=== PATIENT | male | born 1965 | race Caucasian/White ===

== ENCOUNTER 2023-11-09 17:23 | Inpatient (IN) ==
--- NOTE | 2023-11-09 17:48 | Emergency Department Note ---
Impression & Plan Syncope, CLAUDETTE (acute kidney injury), Hypomagnesemia, Acute hyponatremia, Abnormal ECG, Elevated troponin ED Provider Note NAME: VERONICA VELIZ AGE: 58 SEX: M : 1965 ARRIVES VIA: Ambulance INFORMANT: [Patient][ems, ] ED PROVIDER(S): [Nino Teixeira MD] CHIEF COMPLAINT: Cardiac assessment HISTORY OF PRESENT ILLNESS: The patient is a 58-year-old male who was told that he had coronary calcifications on CT. He has never had a heart attack or any type of cardiac catheterization. He was placed on Lipitor because of the CT findings. The patient states that he is here in the [place] area to run the [employer] He ran the race today and was quite tired after but did not have any chest pain during the race. When he got home, he began to have some muscle cramping and felt nauseated. He felt faint. He had some diarrhea. The patient sat back on his bed and had a 10-second syncopal spell, he was sweaty, his called the ambulance. On the way here, his ECG was suggesting a potential WA although he had no chest pain. He was ordered for IV saline. The patient arrives in the ED without complaints of chest pain. He is not short of breath. He still feels some muscle cramping but not as bad as earlier. Patient states that he has an abnormal ECG. His doctors talk about flipped waves on the outside of the ECG, he cannot really say much further. He has no copy of his baseline ECG with him. He is not from this area so we have no old ECGs to use for comparison. PMHx/PSHx/Social Hx: See Below PHYSICAL EXAM: GENERAL: Patient is in no acute distress. HEENT: No acute trauma, normocephalic atraumatic, mucous membranes moist, no nasal congestion. NECK: No stridor, no adenopathy, no meningismus, trachea is midline. LUNGS: Clear to auscultation bilaterally, no wheeze, no rhonchi, breath sounds equal. HEART: Without murmurs gallops or rubs, regular rate and rhythm. ABDOMEN: Soft, nontender, no peritonitis. EXTREMITIES: No cyanosis, full range of motion of all the joints without pain or difficulty. NEUROLOGIC: Oriented x 3, no acute motor or sensory deficits, no focal weakness. SKIN: No jaundice, no diaphoresis. DIFFERENTIAL DIAGNOSIS: Dehydration, electrolyte abnormality, rhabdomyolysis, WA, dysrhythmia, among others. EMERGENCY DEPARTMENT PROCEDURES: MEDICAL DECISION MAKING: There is a moderate leukocytosis, likely from the stress of running the [employer] race. No worrisome anemia. There was a normal platelet count. Sodium was low, magnesium was low. There was evidence for some mild acute kidney injury/dehydration with a creatinine of 1.95. A slight anion gap was seen at 15. No concerning liver enzyme elevation. Total CK was elevated consistent with muscle breakdown from the race. The value was just over 1000. Troponin was slightly elevated, likely from the race itself but, certainly, cardiac injury is a possibility. ECG showed a normal sinus rhythm with some subtle ST elevation across the anterior leads and some inverted T waves inferiorly and laterally. Looking at the patient's phone records, this ECG abnormality is likely chronic. Chest x-ray did not show CHF or pneumonia. Some mild cardiomegaly was seen. The patient appeared to be in a euthyroid state. On exam, the patient was resting comfortably on the stretcher, there was no complaint of chest pain or shortness of breath. The patient had received a liter of fluid prior to arrival. An additional 1 L of fluid was ordered here in the ED. He was ordered for IV Zofran and IV magnesium. I did call and speak with cardiology, they did not feel the patient required emergent cardiac intervention. His values can be trended. Without chest pain, there is no indication for a heart alert. I did speak with the patient about his findings, he understands the need for a hospital stay. He requires further hydration, some electrolyte replacement and cardiac enzyme trending. The the patient is feeling improved since treatment here in the ED. I did speak with case management, the on-call hospitalist was consulted. Prior/Outside records/notes reviewed: Today's EMS notes describing his presentation and transport to this hospital. ECG per my interpretation: Indication was syncope. The ECG shows a normal sinus rhythm with a rate of 65. There are some subtle ST elevations across the anterior leads. There are inverted T waves across the inferior and lateral leads. No old ECGs available for comparison. No PVCs. The QTc is 428. Continuous Cardiac Monitoring per my interpretation: An order was placed for continuous cardiac monitoring. The monitor shows a rate of 63 with normal sinus rhythm. Imaging/x-ray results per my interpretation: Chest x-ray does not show mediastinal widening, pneumonia or pneumothorax. Some mild cardiomegaly was seen. Chronic Medical/Social conditions affecting care: History of coronary calcifications. Care/Management discussed with: Case management, the on-call hospitalist. Interventional cardiology-Dr. Duenas. Level of care consideration(s): After review of the information above and other included data: --I believe the patient requires escalation of care to admission Critical Care Note: I have personally spent 44 minutes of critical care time in the direct management of this patient. This includes bedside care, interpretation of diagnostic studies, and testing, discussion with consultants, patient, and family members, and other required patient management activities. This 44 minutes is in excess of all separately billable procedures. DISPOSITION: Admission Past Med/Surg History Problem List (Updated 11/09/23 @ 18:42 by Nino Teixeira MD) Elevated troponin (Acute) Abnormal ECG (Acute) Acute hyponatremia (Acute) Hypomagnesemia (Acute) CLAUDETTE (acute kidney injury) (Acute) Syncope (Acute) Medical History Coronary artery calcinosis Social History Smoking Status: Never smoker Preferred Language: Setswana Feels Safe at Home: Yes Results & Data (ED) Vital Signs Vital Signs - 24 hr 11/09/23 17:32 11/09/23 17:36 11/09/23 18:25 Temperature 35.9 C L Temperature Source Temporal Artery Scan Pulse Rate 64 63 Pulse Rate [Right Finger] 69 Respiratory Rate 19 19 Respiratory Effort / Characteristics Non-Labored Spontaneous Respiratory Depth Normal Blood Pressure 148/65 H Blood Pressure [Right Arm] 138/88 Blood Pressure Mean 92 Blood Pressure Mean [Right Arm] 104 Pulse Oximetry 97 100 Oxygen Delivery Method Room Air Room Air Sepsis Recent Fever Within 48 Hours No Sepsis New/Unexplained Change in Mental Status N/A Sepsis Action Taken by Nursing No Action Required Home Medications Current Medication List: was personally reviewed by me Laboratory Data Attestation: I reviewed the patient's lab results. 11/09/23 17:33 11/09/23 17:33 Lab Results 06/30/24 Range/Units 17:33 WBC 16.02 H (4.8-10.8) K/ul RBC 4.58 L (4.70-6.10) M/uL Hgb 13.9 L (14.0-18.0) g/dl Hct 39.9 L (42.0-52.0) % MCV 87.1 (80.0-100.0) fL MCH 30.3 (25.0-34.0) pg MCHC 34.8 (32.0-36.0) g/dL RDW Std Deviation 39.8 (36.4-46.3) fL RDW Coeff of Arlen 12.5 (11.5-14.5) % Plt Count 244 (130-400) K/uL MPV 10.2 (9.4-12.4) fL Immature Gran % (Auto) 0.5 % Neut % (Auto) 82.2 % Lymph % (Auto) 11.9 % [place] % (Auto) 5.2 % Eos % (Auto) 0.0 % Baso % (Auto) 0.2 % Neut # (Auto) 13.16 H (1.40-6.50) K/uL Lymph # (Auto) 1.90 (1.20-3.40) K/uL [place] # (Auto) 0.84 H (0.11-0.59) K/uL Eos # (Auto) 0.00 (0.00-0.50) K/uL Baso # (Auto) 0.04 (0.00-0.20) K/uL Immature Gran # (Auto) 0.08 (0.01-0.20) K/uL Sodium 127 L (136-145) mmol/L Potassium 3.8 (3.5-5.1) mmol/L Chloride 90 L (98-107) mmol/L Carbon Dioxide 22 (21-32) mmol/L Anion Gap 15 H (3-11) BUN 33 H (6-23) mg/dl Creatinine 1.95 H (0.6-1.4) mg/dl Est Cr Clr Drug Dosing 46.1 ml/min Est GFR ( Amer) 42.4 ml/min Est GFR (Non-Af Amer) 36.6 ml/min BUN/Creatinine Ratio 16.9 (10-20) Glucose 134 H (70-99(Fasting)) mg/dl Calcium 10.7 H (8.6-10.3) mg/dl Magnesium 1.5 L (1.7-2.4) mg/dl Total Bilirubin 0.9 (0.2-1.0) mg/dl AST 53 H (13-39) U/L ALT 43 (7-52) U/L Alkaline Phosphatase 71 (34-104) U/L Total Creatine Kinase 1008 H (30-223) U/L Troponin I High Sens 173.4 H* (0-20) pg/ml Total Protein 7.3 (6.0-8.3) gm/dl Albumin 4.9 (3.4-5.0) gm/dl Globulin 2.4 L (2.5-4.0) gm/dl Albumin/Globulin Ratio 2.0 (0.9-2) TSH 2.662 (0.300-4.500) uIu/ml Administered Medications Sodium Chloride (Nss) 1,000 mls @ 999 mls/hr IV .Q1H1M SHIN Stop: 11/09/23 18:45 Last Infusion: 11/09/23 18:27 Dose: Infused Documented By: Admin: 11/09/23 17:51 Dose: 999 mls/hr Documented By: BRENDA Magnesium Sulfate/Dextrose (Magnesium Sulfate / D5w) 1 gm in 100 mls @ 100 mls/hr IV Q1H SHIN Stop: 11/09/23 20:17 Last Admin: 11/09/23 18:25 Dose: 100 mls/hr Documented By: ASW Discontinued Medications Ondansetron HCl (Ondansetron Inj 2 Mg/Ml 2 Ml Vial) 4 mg IV NOW STA Stop: 11/09/23 17:43 Last Admin: 11/09/23 17:49 Dose: 4 mg Documented By: ASW Imaging Data Radiologist's Impression: Chest X-Ray 11/09/23 17:43 XR chest 1V portable CLINICAL HISTORY: weakness COMPARISON STUDY: No previous studies for comparison. FINDINGS: Lung volumes are normal. Lungs are clear. There is no pneumothorax or pleural effusion. There is mild enlargement of the cardiac silhouette. Mediastinal contours are normal. There is no evidence for pulmonary edema. IMPRESSION: No acute cardiopulmonary findings. Mild enlargement of the cardiac silhouette. ACT 112: Negative or not required by law. Electronically signed by: Jose Luis Doss M.D. 11/09/2023 6:22 PM Discharge Plan Visit Data Chief Complaint: Cardiac Assessment ED Provider: Nino Teixeira Discharge Problem: Syncope, CLAUDETTE (acute kidney injury), Hypomagnesemia, Acute hyponatremia, Abnormal ECG, Elevated troponin Patient Disposition: Admitted As Inpatient Condition: Fair Forms Stand Alone Forms: [facility] Referrals Referrals: PCP,NO [Primary Care Provider] - Discharge Problem: Syncope Qualifiers: Syncope type: unspecified Qualified Code(s): R55 - Syncope and collapse
[2023-11-09] MEDS: ONDANSETRON INJ 2 MG/ML 2 ML VIAL IV STA (17:49)
[2023-11-09] MEDS: SODIUM CHLORIDE 0.9% 1,000 ML IV SCH (17:51)
[2023-11-09 18:03] LABS: Basophils # (auto) 0.04 K/uL (0.00-0.20); Basophils % (auto) 0.2 %; Hematocrit (blood only) 39.9 % (42.0-52.0); Hemoglobin 13.9 g/dl (14.0-18.0); Immature Granulocytes # (auto) 0.08 K/uL (0.01-0.20); Immature Granulocytes % (auto) 0.5 %; Lymphocytes % (auto) 11.9 %; Mean Corpuscular Hemoglobin 30.3 pg (25.0-34.0); Mean Corpuscular Hgb Conc 34.8 g/dL (32.0-36.0); Mean Corpuscular Volume 87.1 fL (80.0-100.0); Mean Platelet Volume 10.2 fL (9.4-12.4); Monocytes # (auto) 0.84 K/uL (0.11-0.59); Monocytes % (auto) 5.2 %; Neutrophils # (auto) 13.16 K/uL (1.40-6.50); Neutrophils % (auto) 82.2 %; Platelet Count 244 K/uL (130-400); RDW Coefficient of Variation 12.5 % (11.5-14.5); RDW Standard Deviation 39.8 fL (36.4-46.3); Red Blood Count 4.58 M/uL (4.70-6.10); White Blood Count 16.02 K/ul (4.8-10.8)
[2023-11-09 18:11] LABS: Albumin Level 4.9 gm/dl (3.4-5.0); BUN Creatinine Ratio 16.9 (10-20); Bilirubin,Total 0.9 mg/dl (0.2-1.0); Calcium 10.7 mg/dl (8.6-10.3); Creatinine Clr Calc Pharmacy 46.1 ml/min; Est GFR (African American) 42.4 ml/min; Est GFR (Non-African American) 36.6 ml/min; Globulin 2.4 gm/dl (2.5-4.0); Magnesium 1.5 mg/dl (1.7-2.4); Potassium 3.8 mmol/L (3.5-5.1); Total Protein 7.3 gm/dl (6.0-8.3)
[2023-11-09 18:21] LABS: Troponin I High Sensitivity 173.4 pg/ml (0-20)
--- NOTE | 2023-11-09 18:23 | XRay Report ---
XR chest 1V portable CLINICAL HISTORY: weakness COMPARISON STUDY: No previous studies for comparison. FINDINGS: Lung volumes are normal. Lungs are clear. There is no pneumothorax or pleural effusion. The re is mild enlargement of the cardiac silhouette. Mediastinal contours are normal. There is no eviden ce for pulmonary edema. IMPRESSION: No acute cardiopulmonary findings. Mild enlargement of the cardiac silhouette. ACT 112: Negative or not required by law. Electronically signed by: Jose Luis Doss M.D. 11/09/2023 6:22 PM
[2023-11-09 18:25] LABS: Thyroid Stimulating Hormone 2.662 uIu/ml (0.300-4.500)
[2023-11-09] MEDS: MAGNESIUM SULFATE / D5W 1 GM/100 ML BAG IV SCH (18:25)
[2023-11-09 18:39] LABS: INR 1.1 (0.9-1.1); Partial Thromboplastin Ratio 0.9; Partial Thromboplastin Time 24 Seconds (21-31); Prothrombin Time 11.7 Seconds (9.0-12.0)
--- NOTE | 2023-11-09 18:50 | History & Physical Report ---
Date of Service November 09, 2023 Assessment & Plan (1) Syncope: Plan: Admit to the PCU on telemetry Currently stable, asymptomatic, and nontoxic-appearing at the time of admission Presented to the ED via EMS due to syncopal episode at home after completing [employer] competition earlier today Initial concern for possible STEMI with ST segment elevations in the septal leads, patient has been chest pain-free throughout the day Patient's syncopal episode was likely due to acute dehydration and hypotension shortly after having an episode of diarrhea at home No acute focal findings on neuro exam No reported seizure-like activity per patient's who witnessed the syncopal episode Continue IV hydration Fall precautions have been ordered Echo has been ordered to be obtained tomorrow Bilateral SCDs for DVT prophylaxis Heart healthy diet A.m. CBC along with every 4 hours CMP, mag, Phos, PT/INR overnight (2) Abnormal ECG: Plan: EMS called the ED and route due to concerns for possible STEMI on EKG due to ST segment elevations in the septal leads Patient has confirmed multiple times that he has been chest discomfort free even during the [employer] competition today Was given 324 mg aspirin by EMS and route Case was discussed between the ED and interventional cardiology regarding EKG findings, interventional cardiology did not believe that this was ACS as the domi miller has been chest discomfort free and had no events during the [employer] competition Patient confirmed he had a negative stress echo in July of this year, confirmed he is chronic abnormal EKG Interventional cardiology recommended IV hydration, ongoing telemetry monitoring, ongoing trending of his high-sensitivity troponin, and TTE tomorrow Initial high-sensitivity troponin elevated at 173, will obtain 2-hour repeat after admission and continue every 6 hours overnight Cardiology has been consulted, TTE ordered (3) Elevated troponin: Plan: See abnormal ECG (4) Acute hyponatremia: Plan: Initial sodium of 127, chloride of 90 Patient appears significantly dehydrated on exam after just completing the [employer] competition Will obtain serum osmolality, urine osmolality, urine sodium for further evaluation Status post 1 L normal saline in the ED, we will continue with maintenance LR at 125 mL/h with 20 M EQ's KCl 1 bag for now Will monitor every 4 hours CMP, mag, Phos, PT/INR moving forward Monitor intake/output every 6 hours (5) Hypomagnesemia: Plan: Noted to be 1.5 today Likely due to recent competition and episode of diarrhea prior to arrival Status post 1 g IV mag sulfate in the ED, will give an additional 1 g IV mag sulfate on admission Monitor every 4 hours labs overnight and replete as needed Continue monitor on telemetry (6) Dehydration: Plan: Continue IV hydration overnight Creatinine today is 1.95, unsure of previous baseline Monitor every 4 hours renal function and electrolytes Monitor intake/output every 6 hours Plan The patient was discussed with Dr. Luna at the time of the admission History of Present Illness Chief Complaint: Dizziness, diarrhea, syncopal episode Primary Care Provider: ROMAN PCP Truman is a 58-year-old male with a past medical history significant for nonobstructive coronary artery disease who presented to the [facility] ED via EMS on 11/09/2023 with multiple complaints after completing the local [employer] competition earlier today. The patient reportedly arrived home after completing the [employer] and then started to feel lightheaded/dizzy and had a syncopal episode. While in route EMS obtained an EKG which was concerning for ST segment elevation in the septal leads and did call the ED asking if they should make the patient a heart alert. Of note, the ED staff reports that the patient has been chest pain-free throughout. The ED staff spoke with the on-call cribber regarding the EKG findings. Interventional cardiology did not think that this was a true STEMI as the patient was chest pain-free and had just completed an [employer] competition without any issues during the event itself. Interventional cardiology recommended admission, ongoing cardiac monitoring with further troponin trending, IV hydration, and obtaining echocardiogram tomorrow. On arrival to the ED the patient was initially noted to be hypertensive at 148/65 but with otherwise stable. Labs were significant for a leukocytosis of 16 with neutrophil predominance of 13, creatinine of 1.95 (unknown previous baseline), BUN of 33, anion gap of 15 with bicarb within normal limits, sodium of 127, chloride of 90, mag of 1.5, calcium of 10.7, AST of 53, with other LFTs within normal limits, total CK of 1008, initial high-sensitivity troponin of 173. Chest x-ray was read as negative for acute findings, it did note mild enlargement of the cardiac silhouette. Prior to admission the patient was ordered 1 L normal saline bolus, 2 bags 1 g IV mag sulfate, and 4 mg IV Zofran. Of note, the ED provider explained that he spoke with the patient who again confirmed he has been without chest pain. The patient reported to the ED provider that he has known coronary artery calcifications and an abnormal EKG at baseline. Patient was sitting in bed in no acute distress at the time of exam with his bedside, history was obtained from both. He states that this was the first I am in compensation he has done since his left knee replacement last year. He woke in his normal state of health and felt fine during the swimming portion of the event. During the biking portion of the event he was having issues with recurrent leg cramps. He states that the running portion of the race was difficult due to recurrent cramping but confirms that he had no chest discomfort during the entire competition. When he arrived home he was trying to drink lots of water in order to get hydrated but then got nauseous. He went to the bathroom and had an episode of diarrhea and then went to lay on their bed. After lying flat on their bed he had the 5 to 10-second episode of passing out and quickly regained consciousness. His did see the event and confirms there was no seizure-like activity or loss of bowel or bladder function. Patient confirms he has continued to be chest discomfort free since waking this morning. He feels generally fatigued from this competition with mild leg cramps but is otherwise without complaints at this time. He confirms to me that he has a known history of coronary artery disease and is on a statin. States that he had a normal stress test in July of this year. He denies recent fever, shortness of breath, cough, abdominal pain, dysuria/hematuria, melena/bloody bowel movements, and recent trauma. He is a full code and he would want his to make medical decisions for him if he cannot make them himself I was able to confirm that EMS did give the patient 324 mg aspirin and route. Please refer to Dr. Luna's attestation for any changes to the treatment plan Allergies Allergy/AdvReac Type Severity Reaction Status Date / Time oxycodone [From Percocet] AdvReac Intermediate PASSED Verified 11/09/23 18:43 OUT, NAUSEA/VOMITING Home Medications Medication Instructions Recorded Confirmed Type aspirin 81 mg tablet,delayed 81 mg PO HS 11/09/23 11/09/23 History release magnesium oxide 0 mg PO HS 11/09/23 11/09/23 History multivitamin 1 tab PO QAM 11/09/23 11/09/23 History omega-3 fatty acids 1,000 mg 1,000 mg PO QAM 11/09/23 11/09/23 History capsule rosuvastatin 40 mg tablet 40 mg PO HS 11/09/23 11/09/23 History Past Med/Surg History Problem List (Updated 11/09/23 @ 19:20 by Tre Mcginnis PA-C) Dehydration Elevated troponin (Acute) Abnormal ECG (Acute) Acute hyponatremia (Acute) Hypomagnesemia (Acute) CLAUDETTE (acute kidney injury) (Acute) Syncope (Acute) Medical History Coronary artery calcinosis Social History Smoking Status: Unknown if ever smoked Hx Alcohol Use: Yes Alcohol type: beer Hx Substance Use: No Preferred Language: Czech Communication Ability: Effective Sign Fabricator Required: No Beliefs That Will Affect Care: None Current Living Situation: Spouse Feels Safe at Home: Yes Assistive Devices: Contacts Physical Exam Physical Exam: Physical Exam: General: In no acute distress, stated age, well-nourished, non-toxic appearing HEENT: Normocephalic, atraumatic, no scleral icterus, pupils around round, symmetrical, and reactive to light, dry mucus membranes, trachea midline, no thyromegaly Chest/Pulm: No respiratory distress, symmetrical chest expansion, clear breath sounds throughout Cardiac: RRR, no murmurs noted Abdomen: Negative for ascites and bruising, normoactive bowel sounds, soft, non-tender to palpation throughout Musculoskeletal: Symmetrical and without signs of acute trauma, upper and lower extremities with full ROM, no atrophy, spasticity, or flaccidity Extremities: Radial, dorsalis pedis, and posterior tibial pulses are intact and symmetrical, no edema noted in the BL LE's Skin: Warm, dry, no rashes , lesions, or scars noted Neuro: Alert and oriented to person, place, month, year, and president, no focal defects, no tremors noted Psych: No acute distress, calm and cooperative during the exam Results & Data Results & Data Vital Signs (Past 12 Hours) Vital Signs Temp Pulse Pulse Resp BP BP Pulse Ox 11/09/23 18:25 69 19 138/88 100 11/09/23 17:36 63 11/09/23 17:32 35.9 C L 64 19 148/65 H 97 O2 Del Method 11/09/23 18:25 Room Air 11/09/23 17:36 11/09/23 17:32 Room Air Laboratory Results Abnormal lab results 11/09/23 Range/Units 17:33 WBC 16.02 H (4.8-10.8) K/ul RBC 4.58 L (4.70-6.10) M/uL Hgb 13.9 L (14.0-18.0) g/dl Hct 39.9 L (42.0-52.0) % Neut # (Auto) 13.16 H (1.40-6.50) K/uL [place]ower # (Auto) 0.84 H (0.11-0.59) K/uL Sodium 127 L (136-145) mmol/L Chloride 90 L (98-107) mmol/L Anion Gap 15 H (3-11) BUN 33 H (6-23) mg/dl Creatinine 1.95 H (0.6-1.4) mg/dl Glucose 134 H (70-99(Fasting)) mg/dl Calcium 10.7 H (8.6-10.3) mg/dl Magnesium 1.5 L (1.7-2.4) mg/dl AST 53 H (13-39) U/L Total Creatine Kinase 1008 H (30-223) U/L Troponin I High Sens 173.4 H* (0-20) pg/ml Globulin 2.4 L (2.5-4.0) gm/dl Diagnostic Findings Chest X-Ray 11/09/23 17:43 XR chest 1V portable CLINICAL HISTORY: weakness COMPARISON STUDY: No previous studies for comparison. FINDINGS: Lung volumes are normal. Lungs are clear. There is no pneumothorax or pleural effusion. There is mild enlargement of the cardiac silhouette. Mediastinal contours are normal. There is no evidence for pulmonary edema. IMPRESSION: No acute cardiopulmonary findings. Mild enlargement of the cardiac silhouette. ACT 112: Negative or not required by law. Electronically signed by: Jose Luis Doss M.D. 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 STEMI, admit for monitoring IV fluids supplement electrolytes ECHO card eval PG Care Time/CCT Total # of Minutes Spent Total Time Spent with Patient: Total time spent is greater than 50% in coordination of care (as documented) at patient's floor/unit and/or counseling patient: [place] [address] INT INP/OBS CARE 3/75MIN Patient Type New Medical Decision Making High Complexity Diagnoses Syncope R55 Syncope type: unspecified Abnormal ECG R94.31 Elevated troponin R79.89 Acute hyponatremia E87.1 Hypomagnesemia E83.42 Dehydration E86.0 (1) Syncope Syncope type: unspecified Qualified Code(s): R55 - Syncope and collapse
[2023-11-09] MEDS ORDERED: LACTATED RINGER'S 1,000 ML IV SCH (19:00)
[2023-11-09] MEDS: ASPIRIN CHEW 324 MG PO STA (19:13)
[2023-11-09] MEDS: POTASSIUM CHLORIDE 20 MEQ in LACTATED RINGER'S 1,000 ML IV SCH (19:31)
[2023-11-09 21:43] LABS: Albumin Globulin Ratio 1.9 (0.9-2); Albumin Level 4.3 gm/dl (3.4-5.0); BUN Creatinine Ratio 20.4 (10-20); Calcium 9.5 mg/dl (8.6-10.3); Creatinine Clr Calc Pharmacy 63.3 ml/min; Est GFR (African American) 62.2 ml/min; Est GFR (Non-African American) 53.7 ml/min; Globulin 2.3 gm/dl (2.5-4.0); Magnesium 2.3 mg/dl (1.7-2.4); Phosphorus 4.1 mg/dl (2.5-4.9); Potassium 4.2 mmol/L (3.5-5.1); Total Protein 6.6 gm/dl (6.0-8.3)
[2023-11-09] MEDS: ROSUVASTATIN CALCIUM 20 MG TAB PO SCH (22:19)
[2023-11-10 01:51] LABS: Phosphorus 4.6 mg/dl (2.5-4.9)
[2023-11-10 02:11] LABS: Troponin I High Sensitivity 150.3 pg/ml (0-20)
[2023-11-10 07:10] LABS: Basophils # (auto) 0.03 K/uL (0.00-0.20); Basophils % (auto) 0.3 %; Eosinophils # (auto) 0.04 K/uL (0.00-0.50); Eosinophils % (auto) 0.4 %; Hematocrit (blood only) 36.5 % (42.0-52.0); Hemoglobin 12.7 g/dl (14.0-18.0); Immature Granulocytes # (auto) 0.01 K/uL (0.01-0.20); Immature Granulocytes % (auto) 0.1 %; Lymphocytes # (auto) 2.32 K/uL (1.20-3.40); Lymphocytes % (auto) 25.1 %; Mean Corpuscular Hemoglobin 30.8 pg (25.0-34.0); Mean Corpuscular Hgb Conc 34.8 g/dL (32.0-36.0); Mean Corpuscular Volume 88.4 fL (80.0-100.0); Monocytes # (auto) 0.83 K/uL (0.11-0.59); Neutrophils % (auto) 65.1 %; Platelet Count 204 K/uL (130-400); RDW Coefficient of Variation 12.8 % (11.5-14.5); RDW Standard Deviation 41.8 fL (36.4-46.3); Red Blood Count 4.13 M/uL (4.70-6.10); White Blood Count 9.23 K/ul (4.8-10.8)
[2023-11-10 10:49] LABS: Phosphorus 2.8 mg/dl (2.5-4.9)
--- NOTE | 2023-11-10 10:53 | Cardiology Consultation ---
Date of Consultation November 10, 2023 Assessment & Plan (1) Elevated troponin: (2) Syncope: (3) CLAUDETTE (acute kidney injury): (4) Coronary artery calcinosis: (5) Abnormal ECG: Plan ASSESSMENT/PLAN: 1. Syncope: Likely due to hypovolemia in the setting of increased vagal tone with abdominal cramping, nausea, and diarrhea. Doing much better now after IV fluid hydration. No further inpatient workup necessary for this issue. 2. Elevated troponin: Likely due to to demand ischemia in the setting of hypovolemia, extremely vigorous exercise, and vagal response/syncope. He had no anginal symptoms despite his extreme exercise. No wall motion abnormalities on echo. Has known elevated coronary artery calcium score. Discussed the fact that he may indeed have coronary artery disease but that cardiac catheterization is not necessary at this point or urgent. Would have low threshold for coronary angiography if he should develop symptoms concerning for obstructive CAD. Also, patient does not wish to undergo coronary angiography at this time. 3. Elevated coronary artery calcium score/coronary artery calcifications: Agree with aspirin and high intensity statin therapy. Risk factor modification. Plan as above. 4. Abnormal ECG: Has history of abnormal ECG: Has persistent ST elevation despite no symptoms of angina and troponin elevation that has already peaked and trended downward. Echo unremarkable. Plan as above. 5. Acute kidney injury: Likely due to hypovolemia. As per primary hospitalist service. Labs improving. Hyponatremia rather stable and will defer to primary hospitalist service. 6. Disposition: Can be discharged home from a cardiac perspective but will defer to primary hospitalist service given acute kidney injury and hyponatremia. It was recommended that he follow-up with his primary bulk station agent soon after discharge. Thank you for allowing me to participate in the care of your patient. Please call for any other questions or concerns. Sincerely, Derek Perez M.D. History of Present Illness Reason for Consultation: "Syncope, septal ST segment elevations" Requesting Physician: Tre Mcginnis Attending Physician: Tad Barraza MD History of Present Illness Mr. Acuña is a very pleasant 58-year-old gentleman with a history significant for elevated coronary artery calcium score and dyslipidemia. His primary bulk station agent is Dr. Tilley of [facility]. He was in town for [employer] and admitted on 11/09/2023. For the swimming portion of the event, it took him approximately 40 minutes and he felt well. For the 56 miles of the bicycle portion, after approximately 40 miles he began to experience significant leg cramping. He tried to remain hydrated the best he could with electrolytes but he felt dehydrated. For the 13 mile run, he ended up walking and running intermittently due to significant leg cramping. He denied any chest pain, syncope, near syncope, or palpitations. His breathing was as expected based on his training and prior events. Following the race, he went home and approximately 90 minutes later, he was drinking water in the kitchen and became nauseated. He then had abdominal cramping with diarrhea and cold clammy diaphoresis. Because of the cramping in his legs and abdomen, he laid back on his bed and his believes that he lost consciousness for 5 to 10 seconds. He is not sure if he had syncope or not. He denied chest pain, shortness of breath, or palpitations during these events. He then came to the ER for evaluation. His initial ECG demonstrated ST elevation in V1 through V3 with ST/T wave inversion in the inferior lateral leads. His initial high-sensitivity troponin was 173. Labs demonstrated elevated BUN and creatinine and he received IV fluids. He feels back to baseline. He reports that he underwent screening through his work including coronary artery calcium scoring with a score of approximately 1300. Because of this, his bulk station agent placed him on aspirin and high intensity statin therapy and he underwent an exercise stress echo on 07/23/2023. He was able to exercise for 10 minutes via Phil protocol with a negative stress echo imaging. He was able to share those results via his portal. He reports that he has an abnormal ECG and the stress ECG was reportedly uninterpretable due to resting ST/T wave abnormalities. Unfortunately, he does not have an ECG tracing available for review and comparison with ECGs done here. Review of systems: As above. Review of systems otherwise negative/unremarkable. Family history: Father with CAD and PCI in his 60s. Sister with diabetes. Social history: He denies smoking. Occasional alcohol. No drugs. Lives at home with his and [facility]. 4 children, 3 of which went to [facility] and 1 at [facility]. He works as an electrical engineering designer. He also has a home in the [place] area. He was unaccompanied. Allergies Allergy/AdvReac Type Severity Reaction Status Date / Time oxycodone [From Percocet] AdvReac Intermediate PASSED Verified 11/09/23 18:43 OUT, NAUSEA/VOMITING Home Medications Medication Instructions Recorded Confirmed Type aspirin 81 mg tablet,delayed 81 mg PO HS 11/09/23 11/09/23 History release magnesium oxide 0 mg PO HS 11/09/23 11/09/23 History multivitamin 1 tab PO QAM 11/09/23 11/09/23 History omega-3 fatty acids 1,000 mg 1,000 mg PO QAM 11/09/23 11/09/23 History capsule rosuvastatin 40 mg tablet 40 mg PO HS 11/09/23 11/09/23 History Problem List (Updated 11/09/23 @ 19:20 by Tre Mcginnis PA-C) Dehydration Elevated troponin (Acute) Abnormal ECG (Acute) Acute hyponatremia (Acute) Hypomagnesemia (Acute) CLAUDETTE (acute kidney injury) (Acute) Syncope (Acute) Patient History Medical History (Updated 11/09/23 @ 19:20 by Tre Mcginnis PA-C) Coronary artery calcinosis Social History Smoking Status: Unknown if ever smoked Hx Alcohol Use: Yes Alcohol type: beer Hx Substance Use: No Preferred Language: Khmer Communication Ability: Effective Dye Padder Operator Required: No Beliefs That Will Affect Care: None Current Living Situation: Spouse Other Information That Helps Us Care for You: No Feels Safe at Home: Yes Safety Concerns: Feels Safe At This Time Assistive Devices: Contacts Assistive Devices Comment: contacts right eye only Physical Exam Physical Exam: Gen.: No acute distress. Alert and oriented. HEENT: Anicteric sclera. Neck: No JVD. No bruits. Normal carotid upstrokes bilaterally. Cardiac: No ventricular heave. Regular. Normal S1-S2. No murmurs, rubs, or gallops. Pulmonary: Clear to auscultation bilaterally without wheezes, rales, or rhonchi. Abdomen: Soft, nontender, nondistended, with normoactive bowel sounds. No bruits noted. Extremities: 2+ radial pulses bilaterally. 2+ posterior tibialis pulses bilaterally. No edema or cyanosis. Psychiatric: Affect appears appropriate. Results & Data Vital Signs (Past 12 Hours) Vital Signs Temp Pulse Pulse Resp BP BP Pulse Ox 11/10/23 07:36 36.6 C 60 18 116/62 99 11/10/23 05:30 48 L 11/10/23 03:50 36.5 C 16 117/69 98 11/09/23 23:44 36.5 C 56 L 16 131/65 100 O2 Del Method 11/10/23 07:36 Room Air 11/10/23 05:30 11/10/23 03:50 Room Air 11/09/23 23:44 Room Air Intake & Output 11/08/23 11/09/23 11/10/23 11/11/23 06:59 06:59 06:59 06:59 Intake Total 2210 / 2210 Balance 2210 / 2210 Weight 190 lb 14.725 oz Laboratory Results Laboratory Results - last 24 hr 11/09/23 11/09/23 11/09/23 17:30 17:33 19:25 WBC 16.02 H RBC 4.58 L Hgb 13.9 L Hct 39.9 L MCV 87.1 MCH 30.3 MCHC 34.8 RDW Std Deviation 39.8 RDW Coeff of Arlen 12.5 Plt Count 244 MPV 10.2 Immature Gran % (Auto) 0.5 Neut % (Auto) 82.2 Lymph % (Auto) 11.9 [place] % (Auto) 5.2 Eos % (Auto) 0.0 Baso % (Auto) 0.2 Neut # (Auto) 13.16 H Lymph # (Auto) 1.90 [place] # (Auto) 0.84 H Eos # (Auto) 0.00 Baso # (Auto) 0.04 Immature Gran # (Auto) 0.08 PT 11.7 INR 1.1 APTT 24 PTT Ratio 0.9 Sodium 127 L Potassium 3.8 Chloride 90 L Carbon Dioxide 22 Anion Gap 15 H BUN 33 H Creatinine 1.95 H Est Cr Clr Drug Dosing 46.1 Est GFR ( Amer) 42.4 Est GFR (Non-Af Amer) 36.6 BUN/Creatinine Ratio 16.9 Glucose 134 H Osmolality 272 L Calcium 10.7 H Phosphorus Magnesium 1.5 L Total Bilirubin 0.9 AST 53 H ALT 43 Alkaline Phosphatase 71 Total Creatine Kinase 1008 H Troponin I High Sens 173.4 H* 196.4 H* Total Protein 7.3 Albumin 4.9 Globulin 2.4 L Albumin/Globulin Ratio 2.0 TSH 2.662 Urine Osmolality Ur Random Sodium 11/09/23 11/09/23 11/10/23 21:10 Unknown 01:10 WBC RBC Hgb Hct MCV MCH MCHC RDW Std Deviation RDW Coeff of Arlen Plt Count MPV Immature Gran % (Auto) Neut % (Auto) Lymph % (Auto) [place] % (Auto) Eos % (Auto) Baso % (Auto) Neut # (Auto) Lymph # (Auto) [place] # (Auto) Eos # (Auto) Baso # (Auto) Immature Gran # (Auto) PT INR APTT PTT Ratio Sodium 126 L Potassium 4.2 Chloride 94 L Carbon Dioxide 23 Anion Gap 9 BUN 29 H Creatinine 1.42 H D Est Cr Clr Drug Dosing 63.3 Est GFR ( Amer) 62.2 Est GFR (Non-Af Amer) 53.7 BUN/Creatinine Ratio 20.4 H Glucose 127 H Osmolality Calcium 9.5 Phosphorus 4.1 4.6 Magnesium 2.3 Total Bilirubin 1.0 AST 58 H ALT 39 Alkaline Phosphatase 63 Total Creatine Kinase Troponin I High Sens 150.3 H* D Total Protein 6.6 Albumin 4.3 Globulin 2.3 L Albumin/Globulin Ratio 1.9 TSH Urine Osmolality 273 L Ur Random Sodium 20 11/10/23 06:47 WBC 9.23 RBC 4.13 L Hgb 12.7 L Hct 36.5 L MCV 88.4 MCH 30.8 MCHC 34.8 RDW Std Deviation 41.8 RDW Coeff of Arlen 12.8 Plt Count 204 MPV 10.0 Immature Gran % (Auto) 0.1 Neut % (Auto) 65.1 Lymph % (Auto) 25.1 [place] % (Auto) 9.0 Eos % (Auto) 0.4 Baso % (Auto) 0.3 Neut # (Auto) 6.00 Lymph # (Auto) 2.32 [place] # (Auto) 0.83 H Eos # (Auto) 0.04 Baso # (Auto) 0.03 Immature Gran # (Auto) 0.01 PT INR APTT PTT Ratio Sodium Potassium Chloride Carbon Dioxide Anion Gap BUN Creatinine Est Cr Clr Drug Dosing Est GFR ( Amer) Est GFR (Non-Af Amer) BUN/Creatinine Ratio Glucose Osmolality Calcium Phosphorus 2.8 D Magnesium Total Bilirubin AST ALT Alkaline Phosphatase Total Creatine Kinase Troponin I High Sens 121.3 H* Total Protein Albumin Globulin Albumin/Globulin Ratio TSH Urine Osmolality Ur Random Sodium Diagnostic Findings Labs reviewed and notable for high-sensitivity troponin elevation peaking at 196. Abnormal renal function which improved today and labs suggesting azotemia on presentation. Hyponatremia, slightly elevated AST, mild anemia, normal TSH. ECHO 11/10/23: 1. Normal left ventricular size and systolic function. EF 60-65%. No regional wall motion abnormalities. Mild concentric left ventricular hypertrophy. 2. No significant valvular abnormalities. 3. Normal estimated right ventricular systolic pressure. 4. No prior study available for comparison. Telemetry personally reviewed: Sinus bradycardia. No arrhythmia. Chest x-ray 11/09/2023: No acute abnormalities per radiology. History and physical report reviewed. ECGs personally reviewed: ECG 11/09/2023 at 1727: Sinus rhythm with sinus arrhythmia [address] elevation with inferolateral ST/T wave abnormality. ECG 11/09/2023 at 1911: Sinus rhythm [address] elevation and improved inferolateral ST/T wave abnormalities. ECG 11/10/2023 at 6:26 AM: Sinus bradycardia [address] elevation. Anterolateral nonspecific T wave abnormality. Medications Administered Current Inpatient Medications Aspirin (Aspirin 81 Mg Ectab) 81 mg PO HS [facility] Stop: 12/10/23 20:59 Rosuvastatin Calcium (Rosuvastatin Calcium 20 Mg Tab) 40 mg PO HS [facility] Stop: 12/09/23 21:14 Last Admin: 11/09/23 22:19 Dose: 40 mg PG Care Time/CCT Total # of Minutes Spent Total Time Spent with Patient: Total time spent is greater than 50% in coordination of care (as documented) at patient's floor/unit and/or counseling patient: Coding Level of Care Code 19128 IN/OBS CONSULT LVL 4,60M Diagnoses Elevated troponin R79.89 Syncope R55 Syncope type: unspecified CLAUDETTE (acute kidney injury) N17.9 Coronary artery calcinosis I25.10 Abnormal ECG R94.31 (2) Syncope Syncope type: unspecified Qualified Code(s): R55 - Syncope and collapse
--- NOTE | 2023-11-10 11:00 | XCELERA ---
[id number] \\[email or web address]\[id number]
--- NOTE | 2023-11-10 12:11 | Discharge Summary ---
Date of Service November 10, 2023 Admission HPI Per Admitting Provider Truman is a 58-year-old male with a past medical history significant for nonobstructive coronary artery disease who presented to the [facility] ED via EMS on 11/09/2023 with multiple complaints after completing the local [employer] competition earlier today. The patient reportedly arrived home after completing the [employer] and then started to feel lightheaded/dizzy and had a syncopal episode. While in route EMS obtained an EKG which was concerning for ST segment elevation in the septal leads and did call the ED asking if they should make the patient a heart alert. Of note, the ED staff reports that the patient has been chest pain-free throughout. The ED staff spoke with the on-call kinesiology professor regarding the EKG findings. Interventional cardiology did not think that this was a true STEMI as the patient was chest pain-free and had just completed an Iron-[employer] competition without any issues during the event itself. Interventional cardiology recommended admission, ongoing cardiac monitoring with further troponin trending, IV hydration, and obtaining echocardiogram tomorrow. On arrival to the ED the patient was initially noted to be hypertensive at 148/65 but with otherwise stable. Labs were significant for a leukocytosis of 16 with neutrophil predominance of 13, creatinine of 1.95 (unknown previous baseline), BUN of 33, anion gap of 15 with bicarb within normal limits, sodium of 127, chloride of 90, mag of 1.5, calcium of 10.7, AST of 53, with other LFTs within normal limits, total CK of 1008, initial high-sensitivity troponin of 173. Chest x-ray was read as negative for acute findings, it did note mild enlargement of the cardiac silhouette. Prior to admission the patient was ordered 1 L normal saline bolus, 2 bags 1 g IV mag sulfate, and 4 mg IV Zofran. Of note, the ED provider explained that he spoke with the patient who again confirmed he has been without chest pain. The patient reported to the ED provider that he has known coronary artery calcifications and an abnormal EKG at baseline. Patient was sitting in bed in no acute distress at the time of exam with his bedside, history was obtained from both. He states that this was the first I am in compensation he has done since his left knee replacement last year. He woke in his normal state of health and felt fine during the swimming portion of the event. During the biking portion of the event he was having issues with recurrent leg cramps. He states that the running portion of the race was difficult due to recurrent cramping but confirms that he had no chest discomfort during the entire competition. When he arrived home he was trying to drink lots of water in order to get hydrated but then got nauseous. He went to the bathroom and had an episode of diarrhea and then went to lay on their bed. After lying flat on their bed he had the 5 to 10-second episode of passing out and quickly regained consciousness. His did see the event and confirms there was no seizure-like activity or loss of bowel or bladder function. Patient confirms he has continued to be chest discomfort free since waking this morning. He feels generally fatigued from this competition with mild leg cramps but is otherwise without complaints at this time. He confirms to me that he has a known history of coronary artery disease and is on a statin. States that he had a normal stress test in July of this year. He denies recent fever, shortness of breath, cough, abdominal pain, dysuria/hematuria, melena/bloody bowel movements, and recent trauma. He is a full code and he would want his to make medical decisions for him if he cannot make them himself I was able to confirm that EMS did give the patient 324 mg aspirin and route. Please refer to Dr. Luna's attestation for any changes to the treatment plan Principal Diagnosis Syncope due to hypovolemia, hyponatremia, hypomagnesemia, acute kidney injury, abnormal EKG Discharge Exam General-alert and oriented x3, no fever, no chills HEENT-head atraumatic and normocephalic, pupils equal and reactive to light, extraocular muscles intact Neck-no lymphadenopathy or thyromegaly, trachea midline Chest-clear to auscultation. No rales, wheezing or rhonchi Cardiac-regular rate and rhythm, normal S1 and S2 Abdomen-normal bowel sounds, no hepatosplenomegaly Extremities-no cyanosis, clubbing, or edema Neuro-cranial nerves II through XII intact, motor and sensory function within normal limits, strength symmetrical, no focal deficits Psych-normal affect, normal mood Discharge Data Allergies Allergy/AdvReac Type Severity Reaction Status Date / Time oxycodone [From Percocet] AdvReac Intermediate PASSED Verified 11/09/23 18:43 OUT, NAUSEA/VOMITING Consultations 11/09/23 18:29 ED Decision to Admit Stat 11/09/23 19:12 Consult Cardiology Routine Hospital Course (1) Syncope: Appears to be due to volume depletion after the [employer] competition. Resolved with IV fluids. Telemetry unremarkable. (2) Abnormal ECG: Appears to be chronic. No evidence of acute coronary syndrome. He has been evaluated by cardiology. No chest pain (3) Elevated troponin: No evidence of acute coronary syndrome (4) Acute hyponatremia: Corrected with IV fluids. Appears to be due to volume depletion. (5) Hypomagnesemia: Corrected with parenteral replacement (6) Dehydration: Resolved with IV fluids (7) CLAUDETTE (acute kidney injury): Due to volume depletion on admission. Resolved with IV fluids Plan Home today, November 09 Total Time Total Time Spent Total Time Spent (In Minutes): 50-minute Discharge Plan Discharge Items Patient Disposition: Home - Self-Care Reason For Visit: SYNCOPE, DIARRHEA, CLAUDETTE, HYPONATREMIA,ELEVATED TROP Discharge Diagnosis: Syncope due to volume depletion, abnormal EKG, hyponatremia, hypomagnesemia, acute kidney injury Condition on Discharge: Good Activity: Resume your previous activity Non-emergency contact: Primary Care Provider Call non-emergency contact if: your symptoms worsen Follow-up/Referrals: PCP,NO [Primary Care Provider] - Diet: Regular Addtl Attending Provider Instructions: Stay well-hydrated Pending Studies at Discharge: No Stand-Alone Forms: [employer], Smoking Cessation Medications and DC Order Prescriptions: Continued multivitamin Tablet 1 tab PO QAM omega-3 fatty acids 1,000 mg Capsule 1,000 mg PO QAM aspirin 81 mg Tablet,Delayed Release (Dr/Ec) 81 mg PO HS rosuvastatin 40 mg tablet 40 mg PO HS magnesium oxide 400 mg magnesium Tablet 0 mg PO HS Rx Instructions: PT UNSURE OF STRENGTH Discharge Orders: Discharge Order (Routine); Ordered 11/10/23 Ordered By: Tad Barraza Admission Data Admit Date/Time: 11/09/23 18:55 Attending Provider: Tad Barraza Admit Provider: Freda Luna Primary Care Provider: PCP,NO Other Providers: Freda Luna; Romario Perez Coding Level of Care Code 43723 INP/OBS DISCH >30 MIN Diagnoses Syncope R55 Syncope type: unspecified Abnormal ECG R94.31 Elevated troponin R79.89 Acute hyponatremia E87.1 Hypomagnesemia E83.42 Dehydration E86.0 CLAUDETTE (acute kidney injury) N17.9
[2023-11-10 12:28] LABS: BUN Creatinine Ratio 16.4 (10-20); Calcium 9.3 mg/dl (8.6-10.3); Creatinine Clr Calc Pharmacy 70.2 ml/min; Est GFR (African American) 70.5 ml/min; Est GFR (Non-African American) 60.9 ml/min; Potassium 4.9 mmol/L (3.5-5.1)
[2023-11-10] MEDS ORDERED: ASPIRIN 81 MG ECTAB PO SCH (21:00)
--- NOTE | 2023-11-11 06:01 | Electrocardiogram Report ---
Test Reason : Blood Pressure : / mmHG Vent. Rate : 065 BPM Atrial Rate : 065 BPM P-R Int : 162 ms QRS Dur : 096 ms QT Int : 412 ms P-R-T Axes : 055 062 -28 degrees QTc Int : 428 ms Normal sinus rhythm Premature atrial complexes ST elevation consider anterior injury or acute infarct Abnormal ECG No previous ECGs available Confirmed by Romario Perez ([id number]) on 11/11/2023 6:01:04 AM Referred By: NO PCP Confirmed By:Romario Perez
--- NOTE | 2023-11-11 06:08 | Electrocardiogram Report ---
Test Reason : Blood Pressure : / mmHG Vent. Rate : 064 BPM Atrial Rate : 064 BPM P-R Int : 170 ms QRS Dur : 092 ms QT Int : 424 ms P-R-T Axes : 052 069 -01 degrees QTc Int : 437 ms Normal sinus rhythm with sinus arrhythmia ST elevation consider anterior injury or acute infarct Abnormal ECG When compared with ECG of 09-NOV-2023 17:27, T wave inversion less evident in Inferolateral leads Confirmed by Romario Perez ([id number]) on 11/11/2023 6:08:15 AM Referred By: NO PCP Confirmed By:Romario Perez
--- NOTE | 2023-11-11 22:59 | Electrocardiogram Report ---
Test Reason : Blood Pressure : / mmHG Vent. Rate : 052 BPM Atrial Rate : 052 BPM P-R Int : 178 ms QRS Dur : 090 ms QT Int : 466 ms P-R-T Axes : 053 061 047 degrees QTc Int : 433 ms Sinus bradycardia with sinus arrhythmia Nonspecific ST and T wave abnormality ST elevation, consider anterior injury pattern Abnormal ECG When compared with ECG of 09-NOV-2023 19:11, Nonspecific T wave abnormality no longer evident in Inferior leads Confirmed by Romario Perez ([id number]) on 11/11/2023 10:59:13 PM Referred By: NO PCP Confirmed By:Romario Perez
== END 2023-11-10 12:46 | disposition home or self-care (01) | DRG 641 ==
LOC: ED 17:23 → SUATTDRO 18:55 → 2S 18:55